=== PATIENT | male | born 1980 | race Caucasian/White ===

== ENCOUNTER 2018-12-09 16:30 | Emergency (ER) | payer OTHER ==
--- NOTE | 2018-12-09 17:20 | C.PDOC ---
History Of Present Illness 38yo M with no PMH here today for 10 sudden ripping sensation in his abdomen on contraction while working out 4 hours [employer]. He regularly works out, but increased his weight resistance today. He has been able to eat without na usea or vomiting since the sensation started. Denies fever, chills, headache, chest pain, palpitations, numbness, weakness, dizziness. He's most comfortable in the position. <Marni Mathew - Last Filed: 12/09/18 21:57> <Marilin Blackwell - Last Filed: 12/09/18 20:35> History Per: Patient Onset/Duration Of Symptoms: Hrs Current Symptoms Are (Timing): Still Present Additional History Per: Family <Marni Mathew - Last Filed: 12/09/18 21:57> Chief Complaint (Nursing): Abdominal Pain Past Medical History Vital Signs: Last Vital Signs Temp 98.3 F 12/09/18 16:49 Pulse 59 L 12/09/18 16:49 Resp 12/09/18 16:49 BP 135/84 12/09/18 16:49 Pulse Ox 98 12/09/18 18:10 <Marilin Blackwell - Last Filed: 12/09/18 20:35> Reviewed: Nursing Documentation, Vital Signs Vital Signs: Last Vital Signs Temp 98.3 F 12/09/18 16:49 Pulse 59 L 12/09/18 16:49 Resp 20 12/09/18 16:49 BP 135/84 12/09/18 16:49 Pulse Ox 98 12/09/18 16:49 Primary Care Provider: Non [facility] Provider, - Medical History PMH: Gastritis Family History: States: No Known Family Hx - Social History Hx Alcohol Use: No Hx Substance Use: No - Immunization History Hx Tetanus Toxoid Vaccination: No Hx Influenza Vaccination: Yes Hx Pneumococcal Vaccination: No <Marni Mathew - Last Filed: 12/09/18 21:57> Review Of Systems Constitutional: Negative for: Fever, Chills, Sweats, Weakness Eyes: Negative for: Vision Change ENT: Negative for: Ear Pain, Nose Pain Cardiovascular: Negative for: Chest Pain, Palpitations, Edema, Light Headedness Respiratory: Negative for: Cough, Shortness of Breath, Wheezing Gastrointestinal: Positive for: Abdominal Pain. Negative for: Nausea, Vomiting, Diarrhea, Constipation, Melena, Hematochezia Genitourinary: Negative for: Dysuria, Frequency, Incontinence Neurological: Negative for: Weakness, Change in Speech, Confusion, Altered Mental Status <Marni Mathew Y - Last Filed: 12/09/18 21:57> Physical Exam - Physical Exam Appears: Well, No Acute Distress Skin: Normal Color, Warm, Dry Head: Atraumatic, Normacephalic Eye(s): bilateral: PERRL, EOMI Oral Mucosa: Moist Cardiovascular: Rhythm Regular, No Edema, No Murmur, No JVD Respiratory: Normal Breath Sounds, No Accessory Muscle Use, No Rales, No R honchi, No Wheezing Gastrointestinal/Abdominal: Normal Exam, Bowel Sounds (hypoactive), Soft, Tenderness (TTP not increased on deep palpation), No Mass, Guarding (difusely), No Rebound, No Hernia (edges umbilical defect palpable without herniation) Back: Normal Inspection, No CVA Tenderness, No Vertebral Tenderness, No Paraspinal Tenderness Extremity: Normal ROM, No Pedal Edema Pulses: Left Radial: Normal, Right Radial: Normal, Left Dorsalis Pedis: Normal, Right Dorsalis Pedis: Normal DTR: Bicep (R): 2+, Bicep (L): 2+, Knee (R): 2+, Knee (L): 2+ Neurological/Psych: Oriented x3, Normal Speech, Normal Cognition, Normal Cranial Nerves, Normal Motor, Normal Sensation, Normal Reflexes <Marni Mathew Y - Last Filed: 12/09/18 21:57> ED Course And Treatment - Laboratory Results Result Diagrams: 12/09/18 17:32 12/09/18 17:32 Lab Results: Total Bilirubin 0.7 mg/dL (0.2-1.3) 12/09/18 17:32 AST 22 U/L (17-59) 12/09/18 17:32 ALT 36 U/L (21-72) 12/09/18 17:32 Alkaline Phosphatase 122 U/L (38-126) 12/09/18 17:32 Total Protein 7.2 g/dL (6.3-8.3) 12/09/18 17:32 Albumin 4.5 g/dL (3.5-5.0) 12/09/18 17:32 Globulin 2.7 gm/dL (2.2-3.9) 12/09/18 17:32 Albumin/Globulin Ratio 1.7 (1.0-2.1) 12/09/18 17:32 Lipase 25 U/L (23-300) 12/09/18 17:32 Urine Color Yellow (YELLOW) 12/09/18 17:32 Urine Clarity Hazy (Clear) 12/09/18 17:32 Urine pH 7.0 (5.0-8.0) 12/09/18 17:32 Ur Specific [place] 1.017 (1.003-1.030) 12/09/18 17:32 Urine Protein Negative mg/dL (NEGATIVE) 12/09/18 17:32 Urine Glucose (UA) Normal mg/dL (Normal) 12/09/18 17:32 Urine Ketones Negative mg/dL (NEGATIVE) 12/09/18 17:32 Urine Blood Negative (NEGATIVE) 12/09/18 17:32 Urine Nitrate Negative (NEGATIVE) 12/09/18 17:32 Urine Bilirubin Negative (NEGATIVE) 12/09/18 17:32 Urine Urobilinogen Normal mg/dL (0.2-1.0) 12/09/18 17:32 Ur Leukocyte Esterase Neg En/uL (Negative) 12/09/18 17:32 Urine RBC (Auto) 2 /hpf (0-3) 12/09/18 17:32 Ur Squamous Epith Cells < 1 /hpf (0-5) 12/09/18 17:32 Amorphous Sediment Rare /ul (<OCC) H 12/09/18 17:32 - CT Scan/US CT abd/pel Other Rad Studies (CT/US): Read By Radiologist, Radiology Report Reviewed CT/US Interpretation: EXAM: CT Abdomen and Pelvis with IV contrast. CLINICAL HISTORY: Abd pain. TECHNIQUE: Axial computed tomography images of the abdomen and pelvis with intravenous contrast. 0.00 mGy-cm. CONTRAST: With; 100MLS VISI 320. COMPARISON: None provided. FINDINGS: LUNG BASES: The lung bases appear clear. No pleural effusions are seen. LIVER: Unremarkable. GALLBLADDER AND BILE DUCTS: The gallbladder appears within normal limits. No radioopaque gallstones are seen. No biliary ductal dilatation is evident. PANCREAS: Unremarkable. SPLEEN: Unremarkable. ADRENAL GLANDS: Unremarkable. KIDNEYS, URETERS, AND BLADDER: The kidneys appear within normal limits. There is no hydronephrosis or hydroureter. No urinary calculi are seen. 12 mm cyst is noted in the superior pole of right kidney. STOMACH AND BOWEL: Unremarkable appearance of the stomach and bowel. No evidence of bowel obstruction. No evidence suggesting enteritis or colitis. APPENDIX: No evidence of acute appendicitis on CT examination. PERITONEUM: No free fluid. No free air. LYMPH NODES: No lymphadenopathy is evident. REPRODUCTIVE: Unremarkable as visualized. 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 BONES: No aggressive appearing osseous lesion. No acute osseous pathology evident. 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 Progress Note: Discussed with Dr. Weber who instructed to transfer patient to [place] as this diagnosis has a high mortality rate. <Marilin Blackwell - Last Filed: 12/09/18 20:35> - Laboratory Results Result Diagrams: 12/09/18 17:32 12/09/18 17:32 ECG: Interpreted By Me, Viewed By Me ECG Rhythm: Sinus Rhythm ECG Interpretation: Normal Interpretation Of ECG: NSR@67 without STTwave changes Rate From EC O2 Sat by Pulse Oximetry: 98 <Marni Mathew - Last Filed: 12/09/18 21:57> Medical Decision Making Medical Decision Making: - labs - lipase - UA - EKG - IVP Toradol 30 - CT A/P with IV contrast Patient reports resolution of pain, asking when appropriate to leave 2005 Called by radiology, for aortic dissection read. [place] Type B aortic dissection at the level of the SMA adn extends to the bifurcation with involvement of proximal common iliac arteries. - two large bore IVs started 2022 Vascular surgery called, Dr. Weber, who recommended transfer to higher level of care. Transfer protocol initiated. Accepted at [facility] under Dr. Mary Kay Mitchell - Esmolol drip started to keep SBP under 110. - CT dissection protocol repeat. 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 MD/DO has examined the patient and agrees with the treatment plan. <Marni Mathew - Last Filed: 12/09/18 21:57>
[2018-12-09 17:36] LABS: BASO # 0.1 K/uL (0.0-0.2); BASO % 0.5 % (0.0-2.0); EOS % 0.1 % (0.0-4.0); HEMOGLOBIN 16.3 g/dL (12.0-18.0); LYMPH # 1.1 K/uL (1.0-4.3); LYMPH % 9.1 % (20.0-40.0); MEAN CELL VOLUME 84.5 fL (80.0-94.0); MEAN CORPUSCULAR HEMOGLOBIN 28.8 pg (27.0-31.0); MEAN CORPUSCULAR HGB CONC 34.1 g/dL (33.0-37.0); MEAN PLATELET VOLUME 8.7 fL (7.2-11.7); MONO # 0.5 K/uL (0.0-0.8); MONO % 3.9 % (0.0-10.0); NEUT # 10.1 K/uL (1.8-7.0); NEUT % 86.4 % (50.0-75.0); NRBC % 0.1 % (0.0-2.0); PLATELET COUNT 258 K/uL (130-400); RBC 5.65 Mil/uL (4.40-5.90); RED CELL DISTRIBUTION WIDTH 12.7 % (11.5-14.5); WHITE BLOOD COUNT 11.7 K/uL (4.8-10.8)
[2018-12-09 17:48] LABS: ALB/GLOB RATIO 1.7 (1.0-2.1); ALBUMIN 4.5 g/dL (3.5-5.0); ALT/SGPT 36 U/L (21-72); AST/SGOT 22 U/L (17-59); BLOOD UREA NITROGEN 14 mg/dL (9-20); CALCIUM 9.6 mg/dl (8.6-10.4); GFR NON-AFRICAN AMERICAN > 60; SQUAMOUS EPITHIAL < 1 /hpf (0-5); URINE AMORPHOUS SEDIMENT RARE /ul (<OCC); URINE BILIRUBIN NEGATIVE (NEGATIVE); URINE BLOOD NEGATIVE (NEGATIVE); URINE CLARITY Hazy (Clear); URINE COLOR Yellow (YELLOW); URINE GLUCOSE (UA) NORMAL (Normal); URINE LEUKOCYTE ESTERASE NEG Leu/uL (Negative); URINE PROTEIN NEGATIVE (NEGATIVE); URINE UROBILINOGEN NORMAL mg/dL (0.2-1.0)
[2018-12-09] MEDS ORDERED: Iohexol 350mg/ml 100 ML ONE (18:34)
[2018-12-09 19:32] LABS: BANDS 1 % (0-2); LYMPHOCYTE 6 % (20-40); MONOCYTE 3 % (0-10); NEUTROPHIL 90 % (50-75); TOTAL CELLS COUNTED 100
[2018-12-09 19:33] LABS: PLATELET ESTIMATE NORMAL (NORMAL)
[2018-12-09] MEDS ORDERED: Esmolol Hcl 2500mg/250ml NAC 250 ML IV SCH (20:45)
[2018-12-09] MEDS ORDERED: Iodixanol 320 MG/ML 100 ML BOTTLE IV ONE (20:52)
[2018-12-09 21:56] VITALS: O2SAT 98
[2018-12-09 21:59] VITALS: BP 122/76; PULSE 81; RESP 26; TEMP 98.6
--- NOTE | 2018-12-10 10:22 | CT ---
Date of service: 12/09/2018 PROCEDURE: CT Abdomen and Pelvis with contrast HISTORY: abd pain COMPARISON: None. TECHNIQUE: Contrast dose: 100 mL Visipaque 320 Radiation dose: Total exam DLP = 550.94 mGy-cm. This CT exam was performed using one or more of the following dose reduction techniques: Automated exposure control, adjustment of the mA and/or kV according to patient size, and/or use of iterative reconstruction technique. FINDINGS: LOWER THORAX: Unremarkable. LIVER: Unremarkable. No gross lesion or ductal dilatation. GALLBLADDER AND BILE DUCTS: Unremarkable. PANCREAS: Unremarkable. No gross lesion or ductal dilatation. SPLEEN: Unremarkable. ADRENALS: Unremarkable. No mass. KIDNEYS AND URETERS: 12 mm right upper pole exophytic cortical cyst. This measures 33 Hounsfield units. Evaluation with renal ultrasound examination is advised. No calculus. No hydronephrosis. VASCULATURE: No aortic aneurysm. There is dissection of the abdominal aorta beginning just beneath the level of the superior mesenteric artery, extending into the common iliac arteries. Please note that the examination was not performed with arterial graphic technique. The renal arteries appear to arise from the true lumen. The false lumen is not thrombosed. There is no atherosclerotic calcification of the abdominal aorta. BOWEL: There is mild mural thickening of the ascending and transverse colon consistent with a nonspecific colitis. Please correlate clinically. Consider infectious or inflammatory etiology. APPENDIX: Normal appendix. PERITONEUM: Unremarkable. No free fluid. No free air. LYMPH NODES: Unremarkable. No enlarged lymph nodes. BLADDER: Unremarkable. REPRODUCTIVE: Normal prostate BONES: No acute fracture. OTHER FINDINGS: None. IMPRESSION: Aortic dissection extending from beneath the level of the superior mesenteric artery to the level of the common iliac vessels. Examination not performed as a CT arteriogram and is therefore of limited diagnostic value. Renal arteries arise from the true lumen. Mural thickening of the ascending and transverse colon consistent with a nonspecific colitis. Please correlate clinically. Consider infectious or inflammatory etiologies. Additional nonacute findings as above. The preliminary findings for this examination were reported by [facility] at 8:01 p.m. on 12/09/2018. There is discordance of this report with the preliminary findings. The findings involving the mural thickening of the ascending and transverse colon were not described in the preliminary report of this examination.
--- NOTE | 2018-12-10 11:16 | CARD ---
APPROVED REPORT Date of service: 12/09/2018 EKG Measurement Heart [id number] <Conclusion> Normal sinus rhythm Normal ECG
--- NOTE | 2018-12-10 12:01 | CT ---
PROCEDURE: CT Angiography Chest, Abdomen and Pelvis with and without intravenous contrast HISTORY: Type B dissection COMPARISON: CT abdomen/pelvis 12/09/2018 TECHNIQUE: Contiguous axial images of the chest, abdomen and pelvis were obtained in the phase of aortic enhancement. A noncontrast enhanced CT of the chest was also obtained to evaluate for possible intramural thrombus. Coronal and sagittal reformats were generated. IV dose administered: 100 mL Visipaque 320 Radiation dose: Total exam DLP = 1307.69 mGy-cm. This CT exam was performed using one or more of the following dose reduction techniques: Automated exposure control, adjustment of the mA and/or kV according to patient size, and/or use of iterative reconstruction technique. FINDINGS: CT ANGIOGRAPHY OF THE CHEST WITH & WITHOUT CONTRAST: AORTA (CHEST AND ABDOMEN): The thoracic aorta is unremarkable. There is no evidence of aneurysmal dilatation. There is no evidence of dissection. The abdominal aorta is significant for dissection beginning just below the level of the superior mesenteric artery takeoff and extending distally to the common iliac and external iliac vessels. Examination terminates at the level of the proximal external iliac arteries. There is questionable dissection in the internal iliac arteries as well. There is no aneurysmal dilatation of the abdominal aorta. The renal arteries appear to arise from the true lumen of the abdominal aorta. The inferior mesenteric artery arises from the true lumen of the aorta. There is enhancement of the false lumen indicating a lack of thrombosis. The celiac axis, superior mesenteric artery, inferior mesenteric artery and the renal arteries are widely patent. LUNGS: Clear. No nodule, mass or consolidation. MEDIASTINUM: Unremarkable. Normal caliber aorta and pulmonary arterial trunk. No aortic dissection. Normal size heart. LYMPH NODES: Unremarkable. PLEURA: Unremarkable. No pneumothorax. No pleural fluid. BONES: Unremarkable. OTHER FINDINGS: None. CT ANGIOGRAPHY OF THE ABDOMEN AND PELVIS WITH CONTRAST: LIVER: Unremarkable. No gross lesion or ductal dilatation. GALLBLADDER AND BILE DUCTS: Unremarkable. PANCREAS: Unremarkable. No gross lesion or ductal dilatation. SPLEEN: Unremarkable. ADRENALS: Unremarkable. No mass. KIDNEYS AND URETERS: Note is again made of a 12 mm exophytic right upper pole renal cortical cyst. There is no other renal mass. There is no renal calculus or hydronephrosis. VASCULATURE: See above . there is no atherosclerotic calcification of the abdominal aorta. STOMACH AND BOWEL: Please note that the mural thickening seen on prior examination in the rectosigmoid colon is not fully evaluated as this examination did not include the majority of the rectum. There is mural thickening seen in the sigmoid colon again of uncertain significance but possibly reflecting a nonspecific colitis. APPENDIX: Normal appendix. PERITONEUM: Unremarkable. No free fluid. No free air. LYMPH NODES: Unremarkable. No enlarged lymph nodes. BONES: No acute fracture. OTHER FINDINGS: None. IMPRESSION: Dissection of the abdominal aorta below the level of the superior mesenteric artery. The renal arteries and inferior mesenteric artery arise from the true lumen. The dissection extends to include the external iliac arteries and possibly the internal iliac arteries bilaterally. There is again note made of mural thickening of the sigmoid colon. The rectum is not included in this examination. This indicates a nonspecific colitis. Additional minor findings as above. Okay
== END 2018-12-09 21:59 | disposition short-term general hospital (02) ==
LOC: C.ER 16:30
DX: I71.02 Dissection of abdominal aorta (principal)
CPT/HCPCS: 71275; 74175; 74177; 80053; 81001; 83690; 85025; 93005; 96374; 99285; J1885; Q9967